=== PATIENT | male | born 1955 | race Two or more races ===

== ENCOUNTER 2018-12-20 13:40 | Emergency (ER) | payer OTHER ==
[~2018-12-20] VITALS: Ht 177.8 cm; Wt 86.2 kg
[2018-12-20] MEDS ORDERED: TOPROL XL50 M1 (13:53)
[2018-12-20] MEDS ORDERED: ZESTRIL10 M1 (13:53)
== END 2018-12-20 16:57 | disposition home or self-care (01) ==
LOC: ER 13:40
DX: J39.3 Upper respiratory tract hypersensitivity reaction, site unspecified (principal); T63.444A Toxic effect of venom of bees, undetermined, initial encounter; Y92.89 Other specified places as the place of occurrence of the external cause